=== PATIENT | female | born 1970 | race Caucasian/White ===

== ENCOUNTER 2020-04-15 08:05 | Emergency (ER) | payer OTHER ==
[2020-04-15] MEDS ORDERED: ASPIRIN 81 MG TABLET, CHEWABLE PO ONE (09:41)
[2020-04-15] MEDS ORDERED: ONDANSETRON HCL INJ/PF 4 MG/2 ML SDV IV ONE (09:44)
--- NOTE | 2020-04-15 09:44 | ER Document Report ---
ED Respiratory Problem - General Chief Complaint: Shortness Of Breath Stated Complaint: SHORTNESS OF BREATH Time Seen by Provider: 04/15/20 09:34 Primary Care Provider: AMBERLY PAZ MD [ACTIVE PROVISIONAL STAFF] - 04/18/20 Mode of Arrival: Ambulatory Information source: POA - Power of Tone Artist Apprentice Notes: Patient presents with chest pain and shortness of breath that started around 7:00 this morning. Patient reports nausea vomiting x1 episode. Patient denies any diarrhea. Patient reports chronic orthopnea. Patient states she does have a distant history of CHF although does not have a primary doctor and does not take any medications except for Synthroid. Patient initially presented with an oxygen saturation of 88% on room air, nursing staff placed patient on 2 L of oxygen, pulse ox is now in the mid 90s. - HPI Patient complains to provider of: Chest pain, Cough, Short of breath Onset: This morning Pain Level: 5 Context: Smoker Chest pain/discomfort: Left Cough: Nonproductive Associated symptoms: Chest pain/discomfort, Cough, Short of breath, Other - Squeezing chest pain. denies: Fever, Wheezing Similar symptoms previously: Yes Recently seen / treated by doctor: No - Related Data Allergies/Adverse Reactions: No Known Allergies Allergy (Verified 04/15/20 09:51) Past Medical History - General Information source: Patient - Social History Smoking Status: Current Every Day Smoker Frequency of alcohol use: None Drug Abuse: None Occupation: None Lives with: Alone Family History: Reviewed & Not Pertinent - Past Medical History Cardiac Medical History: Reports: Hx Congestive Heart Failure Endocrine Medical History: Reports: Hx Hypothyroidism Past Surgical History: Reports: Hx Orthopedic Surgery Review of Systems - Review of Systems Constitutional: No symptoms reported. denies: Fever, Recent illness EENT: No symptoms reported Cardiovascular: Chest pain, Orthopnea Respiratory: Cough, Short of breath Gastrointestinal: Nausea, Vomiting. denies: Abdominal pain Genitourinary: No symptoms reported Female Genitourinary: No symptoms reported Musculoskeletal: No symptoms reported. denies: Back pain Skin: No symptoms reported Hematologic/Lymphatic: No symptoms reported Neurological/Psychological: No symptoms reported Physical Exam - Vital signs Vitals: Temp Pulse Resp BP Pulse Ox 97.6 F 74 15 204/114 H 88 L 04/15/20 08:39 04/15/20 08:39 04/15/20 08:39 04/15/20 08:39 04/15/20 08:39 - General General appearance: Appears well, Alert In distress: None - HEENT Head: Normocephalic, Atraumatic Eyes: Normal Conjunctiva: Normal Nasal: Normal Mouth/Lips: Normal Mucous membranes: Normal Neck: Normal, Supple. No: Lymphadenopathy - Respiratory Respiratory status: No respiratory distress Chest status: Tender Breath sounds: Rales - bilat lower lobes Chest palpation: Normal - Cardiovascular Rhythm: Regular Heart sounds: S1 appreciated, S2 appreciated Murmur: No - Abdominal Inspection: Morbidly Obese Distension: No distension Tenderness: Nontender - Back Back: Normal, Nontender. No: CVA tenderness - Extremities General upper extremity: Normal inspection, Normal strength General lower extremity: Edema - bilat LE 2+, Normal strength - Neurological Neuro grossly intact: Yes Cognition: Normal [place] Coma Scale Eye Opening: Spontaneous Hardik Coma Scale Verbal: Oriented Hardik Coma Scale Motor: Obeys Commands Hardik Coma Scale Total: 15 - Psychological Associated symptoms: Normal affect, Normal mood - Skin Skin Temperature: Warm Skin Moisture: Dry Skin Color: Normal Course - Re-evaluation Re-evalutation: 04/15/20 10:25 Patient reports that her chest pain has decreased from a 3 to 1/5 after 1 sublingual nitro tablet. Patient's oxygen saturation continues low 90s with 2 L of oxygen on. 04/15/20 10:[address] Melchor who will be in to room to examine patient with ultrasound at bedside. 04/15/20 11:29 Patient's chest pain has resolved at this time. 04/15/20 12:40 Discussed with patient the concern about her continued hypoxia, hypertension as well as acute congestive heart failure with elevated troponin. Patient states that she is feeling better and that she cannot be admitted as she has animals to take care of at home and does not want to have a large bill associated with an admission. Patient states that she will follow-up with a doctor on Friday for recheck. Patient states she does not have anybody locally friends or family to help her with her animals. Patient advised that discharge planning could help make arrangements for their care and that we could have patient access look at possible dana care and see what resources are available to her as far as the hospital admission bill. Patient also advised that she has required oxygen and that in fact I had had to increase her oxygen administration to 4 L due to her continued low oxygen saturation. Patient asked who would take care of her animals if she went home and as she is at very high risk of doing if she le aves the hospital at this time. Patient states that she would assume this risk and that her children from out of state would come and take care of her animals if that happen. Patient states that she is in no way staying to be admitted at this time. Patient is agreeable with waiting until I can consult with cardiology for any recommendations for her care as she is refusing admission and only wants to be followed on outpatient basis. Patient is agreeable to wait until I can speak with cardiology for any recommendations. The patient has chosen to leave the facility against medical advice. The relevant issues have been reviewed and discussed with the patient and family at the bedside. At the time of this assessment there is no indication for involuntary commitment. The patient is alert, oriented, and able to express clearly their reasoning for not wanting to remain in the emergency department for further treatment. The patient is not clinically psychotic, intoxicated, and denies and suicidal ideation. Differential or suspected diagnoses based on medical screening exam: Congestive heart failure, AR, respiratory failure The patient is aware of the concerning diagnoses and acknowledges understanding of the reasons for the following recommendations: Admission The following recommendations/services were offered and refused: Admission with consultation of discharge planning as well as patient access and to evaluate for resources including dana care The following risks were explained: , permanent disability, loss of function Clinical impression: Patient is competent to make decisions regarding the medical that is being offered. 04/15/20 12:[address] Paz who is on for cardiology and discussed patient's presentation exam findings and her intent to leave [facility]. Dr. Paz strongly advises against leaving [facility] stating that it is a high probability that she could over the weekend before she is able to follow-up and requests that patient be informed of his opinion on the matter. Dr. Paz requests that patient's home phone number be confirmed. Dr. Paz also advises giving her a prescription for sublingual nitroglycerin as well as Lasix 20 mg orally daily. He advises having her contact their office and that he or his partner will evaluate her this week in the office. 04/15/20 13:07 Patient's repeat troponin elevated in the acute AR range at this time. Patient was advised that she had an N STEMI and was advised of what this means. Patient continues with her plan to leave AMA at this time. Again discussed risks and concerns with patient. Dr. Paz was called and advised of her repeat troponin, he does recommend starting lisinopril 10 mg daily and a baby aspirin daily. States that she can come into the office Friday or Friday at the latest if she survives until then. This was explained to the patient, patient strongly encouraged to return at any point if she has any worsening of symptoms or if she would like to continue her care. - Vital Signs Vital signs: Temp Pulse Resp BP Pulse Ox 97.6 F 74 16 168/98 H 96 04/15/20 09:47 04/15/20 08:39 04/15/20 13:01 04/15/20 13:01 04/15/20 13:01 - Laboratory Result Diagrams: 04/15/20 08:35 04/15/20 08:35 Laboratory results interpreted by me: 04/15/20 04/15/20 04/15/20 08:35 08:35 08:35 Hgb 11.6 L MCHC 31.8 L RDW 17.9 H Plt Count 462 H Est GFR ( Amer) 59 L Est GFR (MDRD) Non-Af 48 L Glucose 137 H Total Bilirubin 1.4 H NT-Pro-B Natriuret Pep 4520 H Urine Protein Urine Blood Urine Nitrite 04/15/20 11:47 Hgb MCHC RDW Plt Count Est GFR ( Amer) Est GFR (MDRD) Non-Af Glucose Total Bilirubin NT-Pro-B Natriuret Pep Urine Protein 30 H Urine Blood MODERATE H Urine Nitrite POSITIVE H - Diagnostic Test Radiology reviewed: Image reviewed, Reports reviewed Critical Care Note - Critical Care Note Comments: Please bill 40 minutes critical care time spent in direct contact evaluating, reevaluating patient, treating symptoms, reviewing labs, studies and speaking with family and consultants, excluding any procedures. Discharge - Discharge Clinical Impression: NSTEMI (non-ST elevated myocardial infarction), Hypoxia CHF (congestive heart failure) Qualifiers: Heart failure type: unspecified Heart failure chronicity: acute Qualified Code(s): I50.9 - Heart failure, unspecified Disposition: AGAINST MEDICAL ADVICE Instructions: Congestive Heart Failure ([facility]) Additional Instructions: Return immediately if you have any new or worsening symptoms or if you would like to continue your treatment for your heart attack as well as your heart failure and your difficulty breathing. Dr. Paz the education sales consultant would like to see you in the office on Friday or Friday this week. Call his office on Friday to make an appointment Call 911 if your symptoms become severe Take 1 baby aspirin each day. Prescriptions: Nitroglycerin [Nitrostat 0.4 mg (1/150 Gr) Tabs 25/Bottle] 1 tab SL Q5MP PRN #25 tab.subl PRN Reason: Furosemide [Lasix 20 mg Tablet] 20 mg PO QAM #30 tablet Lisinopril [Prinivil] 10 mg PO DAILY #30 tablet Referrals: AMBERLY PAZ MD [ACTIVE PROVISIONAL STAFF] - 04/18/20
[2020-04-15] MEDS: NITROGLYCERIN 0.4 MG/TAB 25 TAB/BOTTLE SL PRN ×2 (10:00→10:32)
[2020-04-15 10:07] LABS: ABSOLUTE BASOPHILS # (AUTO) 0.1 10^3/uL (0.0-0.2); ABSOLUTE EOSINOPHILS # (AUTO) 0.3 10^3/uL (0.0-0.6); ABSOLUTE LYMPHOCYTES (AUTO) 1.6 10^3/uL (0.5-4.7); ABSOLUTE MONOCYTES (AUTO) 0.5 10^3/uL (0.1-1.4); ABSOLUTE NEUT (AUTO) 4.8 10^3/uL (1.7-8.2); BASOPHILS % (AUTO) 0.8 % (0-2); EOSINOPHILS % (AUTO) 3.5 % (0-6); HEMATOCRIT 36.4 % (36.0-47.0); HEMOGLOBIN 11.6 g/dL (12.0-15.5); LYMPHOCYTES % (AUTO) 22.5 % (13-45); MEAN CORPUSCULAR HEMOGLOBIN 29.2 pg (27.0-33.4); MEAN CORPUSCULAR HGB CONC 31.8 g/dL (32.0-36.0); MEAN CORPUSCULAR VOLUME 92 fl (80-97); MONOCYTES % (AUTO) 6.6 % (3-13); PLATELET COUNT 462 10^3/uL (150-450); RED BLOOD COUNT 3.96 10^6/uL (3.72-5.28); RED CELL DISTRIBUTION WIDTH 17.9 % (11.5-14.0); SEGMENTED NEUTROPHILS % (AUTO) 66.6 % (42-78); TOTAL CELLS COUNTED % (AUTO) 100 %; WHITE BLOOD COUNT 7.2 10^3/uL (4.0-10.5)
[2020-04-15 10:10] LABS: ALBUMIN 4.1 g/dL (3.5-5.0); ALKALINE PHOSPHATASE 75 U/L (38-126); ANION GAP 8 (5-19); ASPARTATE AMINO TRANSFERASE 28 U/L (14-36); BILIRUBIN,DIRECT 0.1 mg/dL (0.0-0.4); BILIRUBIN,TOTAL 1.4 mg/dL (0.2-1.3); BLOOD UREA NITROGEN 17 mg/dL (7-20); CALCIUM 9.4 mg/dL (8.4-10.2); CARBON DIOXIDE 28 mmol/L (22-30); CHLORIDE 102 mmol/L (98-107); GLUCOSE 137 mg/dL (75-110); POTASSIUM 4.5 mmol/L (3.6-5.0); TOTAL PROTEIN 7.3 g/dL (6.3-8.2)
--- NOTE | 2020-04-15 10:15 | RADIOLOGY REPORT (SQ) ---
EXAM DESCRIPTION: CHEST SINGLE VIEW IMAGES COMPLETED DATE/TIME: 04/15/2020 9:58 am REASON FOR STUDY: cp, sob COMPARISON: None. EXAM PARAMETERS: NUMBER OF VIEWS: One view. TECHNIQUE: Single frontal radiographic view of the chest acquired. RADIATION DOSE: NA LIMITATIONS: Body habitus and portable technique. FINDINGS: LUNGS AND PLEURA: No opacities, masses or pneumothorax. No pleural effusion. MEDIASTINUM AND HILAR STRUCTURES: No masses. Contour normal. HEART AND VASCULAR STRUCTURES: Enlarged cardiac silhouette. Normal vasculature. BONES: No acute findings. HARDWARE: None in the chest. OTHER: No other significant finding. IMPRESSION: Cardiomegaly versus pericardial effusion. No infiltrate or edema. TECHNICAL DOCUMENTATION: JOB ID: [id number] 2010 [employer]- All Rights Reserved Reading location - IP/workstation name: [email or web address]
[2020-04-15 10:22] LABS: TROPONIN I 0.022 ng/mL
[2020-04-15] MEDS ORDERED: FUROSEMIDE INJ/PF 20 MG/2 ML SDV IV ONE (10:37)
[2020-04-15 10:44] LABS: VENOUS BLOOD BASE EXCESS -1.1 mmol/L; VENOUS BLOOD HCO3 25.4 mmol/L (20-32); VENOUS BLOOD PH 7.32 (7.30-7.42)
[2020-04-15] MEDS ORDERED: NITROGLYCERIN 2% OINTMENT 1 GM PACKET TP ONE (11:28)
--- NOTE | 2020-04-15 11:54 | RADIOLOGY REPORT (SQ) ---
EXAM DESCRIPTION: CTA CHEST IMAGES COMPLETED DATE/TIME: 04/15/2020 11:30 am REASON FOR STUDY: cp, sob COMPARISON: None. TECHNIQUE: CT scan of the chest performed using helical scanning technique with dynamic intravenous contrast injection. Images reviewed with lung, soft tissue and bone windows. Reconstructed coronal and sagittal MPR images reviewed. Additional 3 dimensional post-processing performed to develop Maximal Intensity Projection images (VA P). All images stored on PACS. All CT scanners at this facility use dose modulation, iterative reconstruction, and/or weight based d osing when appropriate to reduce radiation dose to as low as reasonably achievable (ALARA). [facility]: Dose Right [facility]: CareDose [facility]: Dose Right [facility]: Teradose 4D [facility]: Smart [employer] CONTRAST TYPE AND DOSE: Contrast bolus optimized for the pulmonary arteries. Not diagnostic for the aorta. RENAL FUNCTION: GFR > 60. RADIATION DOSE: CT Rad equipment meets quality standard of care and radiation dose reduction techniq ues were employed. CTDIvol: 29.8 - 37.2 mGy. DLP: 1295 mGy-cm. . LIMITATIONS: None. FINDINGS: LUNGS AND PLEURA: No masses, infiltrates, or pneumothorax. No pleural effusions or pleura l calcifications. AORTA AND GREAT VESSELS: No aneurysm. Contrast bolus not optimized for the aorta. HEART: No pericardial effusion. Cardiomegaly. PULMONARY ARTERIES: No emboli visualized in the main pulmonary arteries or the segmental branches. HILAR AND MEDIASTINAL STRUCTURES: No identified masses or abnormal nodes. HARDWARE: None in the chest. UPPER ABDOMEN: Cholelithiasis. Limited exam. THYROID AND OTHER SOFT TISSUES: No masses. No adenopathy. BONES: No acute or significant finding. 3D MIPS: Confirm above findings. OTHER: No other significant finding. IMPRESSION: No PE. No acute findings. COMMENT: Quality ID # [id number]: Final reports with documentation of one or more dose reduction techniques (e.g., Automated exposure control, adjustment of the mA and/or kV according to patient size, use of iterative reconstruction technique) TECHNICAL DOCUMENTATION: JOB ID: [id number] 2010 [employer]- All Rights Reserved Reading location - IP/workstation name: [email or web address]
[2020-04-15 12:22] LABS: APPEARANCE,URINE SLIGHTLY-CLOUDY; BILIRUBIN,URINE NEGATIVE (NEGATIVE); COLOR,URINE YELLOW; GLUCOSE, URINE NEGATIVE (NEGATIVE); KETONES,URINE NEGATIVE (NEGATIVE); LEUKOCYTE ESTERASE,URINE NEGATIVE (NEGATIVE); NITRITE,URINE POSITIVE (NEGATIVE); PROTEIN,URINE 30 mg/dL (NEGATIVE); URINE SPECIFIC GRAVITY 1.015; UROBILINOGEN,URINE NEGATIVE mg/dL (<2.0)
[2020-04-15 13:51] VITALS: BP 168/98
--- NOTE | 2020-04-15 20:54 | EKG REPORT ---
SEVERITY:- ABNORMAL ECG - SINUS RHYTHM PROBABLE LEFT ATRIAL ABNORMALITY INCOMPLETE RBBB AND LAFB ABNRM R PROG, CONSIDER ASMI OR LEAD PLACEMENT : Confirmed by: Erick Trujlilo 15-Apr-2020 20:53:51
--- NOTE | 2020-04-15 20:54 | EKG REPORT ---
SEVERITY:- ABNORMAL ECG - SINUS RHYTHM LEFT ATRIAL ABNORMALITY INCOMPLETE RBBB AND LAFB LEFT VENTRICULAR HYPERTROPHY : Confirmed by: Erick Trujillo 15-Apr-2020 20:53:57
== END 2020-04-15 13:54 | disposition left against medical advice (07) ==
LOC: ER 08:05
DX: I21.4 Non-ST elevation (NSTEMI) myocardial infarction (principal); R09.02 Hypoxemia; I50.9 Heart failure, unspecified; R06.02 Shortness of breath; R11.2 Nausea with vomiting, unspecified; R06.01 Orthopnea; R07.9 Chest pain, unspecified; R05 Cough; Z79.899 Other long term (current) drug therapy; F17.200 Nicotine dependence, unspecified, uncomplicated
CPT/HCPCS: 93005; 99291; 96374; 96375; 36415; 87086; 83735; 85025; 87088; 80053; 81001; 84484; 87186; 82803; 83880; 71045; 71275; 93010; J1940; J2405